=== PATIENT | female | born 1985 | race Caucasian/White ===

== ENCOUNTER 2024-07-19 10:03 | Emergency (ER) | payer MEDICAID, OTHER ==
[~2024-07-19] VITALS: Ht 167.6 cm; Wt 60.0 kg
[2024-07-19 10:37] VITALS: BP 117/73; PULSE 66; RESP 18; TEMP 98.2; O2SAT 100
[2024-07-19] MEDS ORDERED: TETRACAINE 0.5% OPHTH DROPS 4ML BOTHEYE ONE (11:15)
[2024-07-19] MEDS ORDERED: ERYT1OIN6 EACHEYE (11:53)
[2024-07-19] MEDS ORDERED: FLUORESCEIN SODIUM 1MG/STRIP BOTHEYE ONE (12:00)
== END 2024-07-19 12:24 | disposition home or self-care (01) ==
LOC: ER 10:21
DX: H10.32 Unspecified acute conjunctivitis, left eye (principal)
CPT/HCPCS: 99283; Z7610